=== PATIENT | female | born 2000 | race Caucasian/White ===

== ENCOUNTER 2019-03-22 10:35 | Emergency (ER) | payer MEDICAID ==
[~2019-03-22] VITALS: Ht 162.6 cm; Wt 84.9 kg
[2019-03-22 10:39] VITALS: BP 143/93
--- NOTE | 2019-03-22 10:49 | NUR ---
PATIENT AMBULATED TO BED 12
--- NOTE | 2019-03-22 10:50 | NUR ---
PT PRESENT TO ED WITH C/O ABD PAIN AND LOWER BACK PAIN. PT STATES SHE IS 7 WEEKS . PT STATES SHE WENT TO [facility] ON 03/15. [facility] DID US AND WAS UNABLE TO SEE BABY. PT STATES SHE IS STILL HAVING ABD PAIN. PT C/O BODYACHES 06/16.
[2019-03-22 11:59] LABS: APPEARANCE,URINE CLEAR (CLEAR); BILIRUBIN,URINE NEGATIVE (NEGATIVE); BLOOD, URINE NEGATIVE (NEGATIVE); COLOR,URINE YELLOW (YELLOW); LEUKOCYTE ESTERASE ,URINE NEGATIVE (NEGATIVE); NITRITE, URINE NEGATIVE (NEGATIVE); UGLUCOSE NEGATIVE (NEGATIVE)
--- NOTE | 2019-03-22 12:00 | NUR ---
PT SITTING WITH FAMILY AT BEDSIDE, AWAITING US. PT IN STABLE CONDITION.
--- NOTE | 2019-03-22 12:42 | NUR ---
US AT BEDSIDE
[2019-03-22 13:06] LABS: RBC,URINE NONE SEEN /HPF (0-5); WBC,URINE 0-5 /HPF (0-5)
--- NOTE | 2019-03-22 15:10 | NUR ---
Patient discharged with v/s stable. Written and verbal after care instructions given and explained. Patient verbalized understanding. Ambulatory with steady gait. All questions addressed prior to discharge. Advised to follow up with PMD.
[2019-03-22 15:18] VITALS: BP 130/64
== END 2019-03-22 15:10 | disposition home or self-care (01) ==
LOC: MED 10:35
DX: O26.891 Other specified pregnancy related conditions, first trimester (principal); R10.30 Lower abdominal pain, unspecified; Z3A.01 Less than 8 weeks gestation of pregnancy
CPT/HCPCS: 36415; 76801; 76817; 81001; 81025; 84702; 99284; Q0092

== ENCOUNTER 2019-11-15 21:16 | Emergency (ER) | payer MEDICAID ==
[~2019-11-15] VITALS: Ht 162.6 cm; Wt 86.2 kg
[2019-11-15 21:30] VITALS: BP 148/92
--- NOTE | 2019-11-16 00:28 | NUR ---
Pt ambulated to bed 6. Accompanied by family.
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
--- NOTE | 2019-11-16 00:37 | NUR ---
DR LI EVALUATING PT AT BEDSIDE
[2019-11-16] MEDS ORDERED: KETOROLAC 60 MG/2 ML VIAL IM ONE (00:45)
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
--- NOTE | 2019-11-16 01:45 | NUR ---
PT RESTING IN BED EYES CLOSED. BOYFRIEND AT BEDSIDE. PT STATES PAIN CONTINUES TO BE 2/10 HEAD PAIN. PT STATES THAT PAIN IS TOLERABLE AT THAT LEVEL. PT RESPIRATIONS ARE BEREKET AND UNLABORED. SKIN IS WARM AND DRY TO TOUCH. BED IS IN LOWEST POSITION AND LOCKED IN PLACE.
[2019-11-16 01:51] VITALS: BP 148/92
--- NOTE | 2019-11-16 01:52 | NUR ---
Note mindyone in EDM - 11/16/19 at 0154 by [email or web address] PT RESTING IN BED EYES CLOSED. BOYFRIEND AT BEDSIDE. PT STATES PAIN CONTINUES TO BE 2/10 HEAD PAIN. PT STATES THAT PAIN IS TOLERABLE AT THAT LEVEL. PT RESPIRATIONS ARE BEREKET AND UNLABORED. SKIN IS WARM AND DRY TO TOUCH. BED IS IN LOWEST POSITION AND LOCKED IN PLACE.
== END 2019-11-16 01:50 | disposition home or self-care (01) ==
LOC: MED 21:16
DX: M79.602 Pain in left arm (principal); M79.601 Pain in right arm; R51 Headache; M54.9 Dorsalgia, unspecified
CPT/HCPCS: 96372; 99283; J1885

== ENCOUNTER 2020-02-14 15:27 | Emergency (ER) | payer MEDICAID, OTHER ==
[~2020-02-14] VITALS: Ht 162.6 cm; Wt 87.5 kg
[2020-02-14 15:35] VITALS: BP 124/83
[2020-02-14 16:06] LABS: BASOPHILS % (AUTO) 0.4 % (0.0-2.0); EOSINOPHILS # (AUTO) 0.1 K/uL (0-0.4); EOSINOPHILS % (AUTO) 1.6 % (0.0-4.0); HEMATOCRIT 37.7 % (36-48); HEMOGLOBIN 12.2 g/dL (12.0-16.0); LYMPHOCYTES # (AUTO) 2.2 K/uL (2.5-16.5); LYMPHOCYTES % (AUTO) 27.2 % (20.5-51.1); MEAN CORPUSCULAR HEMOGLOBIN 26 pg (27-31); MEAN CORPUSCULAR HGB CONC 32 g/dL (33-37); MEAN CORPUSCULAR VOLUME 79.4 fL (80-94); MONOCYTES # (AUTO) 0.5 K/uL (0.8-1.0); MONOCYTES % (AUTO) 6.4 % (1.7-9.3); NEUTROPHILS # (AUTO) 5.3 K/uL (1.8-7.7); NEUTROPHILS % (AUTO) 64.4 % (42.2-75.2); PLATELET COUNT (AUTO) 314 K/uL (140-450); RED BLOOD CELL COUNT(AUTO) 4.75 MIL/uL (4.20-5.40); RED CELL DISTRIBUTION WIDTH 16.2 % (11.6-13.7); WHITE BLOOD COUNT (AUTO) 8.2 K/uL (4.5-11.0)
[2020-02-14 16:20] LABS: APPEARANCE,URINE HAZY (CLEAR); BILIRUBIN,URINE NEGATIVE (NEGATIVE); BLOOD, URINE 3+ (NEGATIVE); COLOR,URINE YELLOW (YELLOW); LEUKOCYTE ESTERASE ,URINE TRACE (NEGATIVE); NITRITE, URINE NEGATIVE (NEGATIVE); PH,URINE 7.5 (5.0-9.0); UGLUCOSE NEGATIVE (NEGATIVE)
[2020-02-14 16:34] LABS: WBC,URINE 0-5 /HPF (0-5)
[2020-02-14] MEDS ORDERED: ACETAMINOPHEN EXTRA STRENGTH 500 MG TAB ONE (16:49)
[2020-02-14] MEDS ORDERED: ACETAMINOPHEN EXTRA STRENGTH 500 MG TAB PO ONE (16:50)
[2020-02-14 18:14] VITALS: BP 145/78
== END 2020-02-14 18:14 | disposition home or self-care (01) ==
LOC: MED 15:27
DX: O20.0 Threatened abortion (principal); I10 Essential (primary) hypertension; Z3A.01 Less than 8 weeks gestation of pregnancy
CPT/HCPCS: 36415; 76817; 81001; 84702; 85025; 86900; 86901; 87086; 99284; Q0092

== ENCOUNTER 2022-07-29 16:57 | Emergency (ER) | payer OTHER ==
[~2022-07-29] VITALS: Ht 162.6 cm; Wt 97.1 kg
[2022-07-29 17:08] VITALS: BP 148/82
[2022-07-29] MEDS ORDERED: IBUPROFEN 800 MG TAB PO ONE (17:30)
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
== END 2022-07-29 20:37 | disposition home or self-care (01) ==
LOC: MED 16:57
DX: M25.512 Pain in left shoulder (principal); M25.561 Pain in right knee; M54.50 Low back pain, unspecified; I10 Essential (primary) hypertension; V89.2XXA Person injured in unspecified motor-vehicle accident, traffic, initial encounter; Y93.89 Activity, other specified; Y92.89 Other specified places as the place of occurrence of the external cause; Y99.8 Other external cause status
CPT/HCPCS: 72100; 73030; 73562; 81002; 81025; 99284

== ENCOUNTER 2023-01-13 18:37 | Emergency (ER) | payer OTHER ==
--- NOTE | 2023-01-13 18:40 | NUR ---
CALLED TO TRIAGE NO RESPONSE
--- NOTE | 2023-01-13 19:02 | NUR ---
CALLED TO TRIAGE NO RESPONSE
--- NOTE | 2023-01-13 19:11 | NUR ---
PATIENT LEFT WITHOUT BEING SEEN BY DR. COX. NO FURTHER CARE PROVIDED FOR PATIENT.
== END 2023-01-13 19:11 | disposition left against medical advice (07) ==
LOC: MED 18:37
DX: O99.511 Diseases of the respiratory system complicating pregnancy, first trimester (principal); Z3A.09 9 weeks gestation of pregnancy; Z53.21 Procedure and treatment not carried out due to patient leaving prior to being seen by health care provider

== ENCOUNTER 2023-08-30 00:05 | Emergency (ER) | payer OTHER ==
[~2023-08-30] VITALS: Ht 162.6 cm; Wt 93.9 kg
[2023-08-30 00:18] VITALS: BP 141/94; PULSE 72; RESP 18; TEMP 98; TEMP 98.6; O2SAT 99
[2023-08-30] MEDS ORDERED: ONDANSETRON 4 MG ODT PO ONE (00:35)
[2023-08-30 00:47] LABS: APPEARANCE,URINE SL CLOUDY (CLEAR); BILIRUBIN,URINE NEGATIVE (NEGATIVE); BLOOD, URINE NEGATIVE (NEGATIVE); COLOR,URINE YELLOW (YELLOW); LEUKOCYTE ESTERASE ,URINE 1+ (NEGATIVE); NITRITE, URINE NEGATIVE (NEGATIVE); PROTEIN,URINE NEGATIVE (NEGATIVE); UGLUCOSE NEGATIVE (NEGATIVE); UROBILINOGEN,URINE 0.2 EU/dL (0.2 - 1)
[2023-08-30] MEDS ORDERED: ONDANSETRON 4 MG/2 ML VIAL IVP ONE ×2 (00:50→01:30)
[2023-08-30] MEDS ORDERED: KETOROLAC 30 MG/ML VIAL IVP ONE (00:50)
[2023-08-30] MEDS ORDERED: NACL 0.9% 1,000 ML IV ONE (00:50)
[2023-08-30 01:02] LABS: BACTERIA,URINE >30 (MANY) /HPF (None Seen); MUCUS,URINE 1+ /LPF (None Seen); RBC,URINE 0-5 /HPF (0-5)
[2023-08-30] MEDS ORDERED: IBUP-2213 PO (01:13)
[2023-08-30] MEDS ORDERED: ONDA8TAB87 PO (01:13)
[2023-08-30] MEDS ORDERED: CIPR500T4 PO (01:13)
[2023-08-30] MEDS ORDERED: MORPHINE SULFATE 4 MG/ML SYR IVP ONE (01:30)
[2023-08-30] MEDS ORDERED: diphenhydrAMINE 50 MG/ML VIAL ONE (01:39)
[2023-08-30] MEDS ORDERED: diphenhydrAMINE 50 MG/ML VIAL IVP ONE (01:40)
[2023-08-30 02:30] VITALS: BP 122/59; PULSE 63; RESP 16; O2SAT 98
== END 2023-08-30 02:30 | disposition home or self-care (01) ==
LOC: MED 00:05
DX: N39.0 Urinary tract infection, site not specified (principal); R11.2 Nausea with vomiting, unspecified; I10 Essential (primary) hypertension
CPT/HCPCS: 81001; 81025; 87086; 96361; 96374; 96375; 96376; 99284; J1200; J1885; J2270; J2405; J7030; Q0162